=== PATIENT | female | born 1980 | race Caucasian/White ===

== ENCOUNTER → 2016-11-12 | Outpatient (CLI) | payer OTHER ==
--- NOTE | 2016-11-12 15:40 | US ---
EXAMINATION TYPE: US transvaginal DATE OF EXAM: 11/12/2016 COMPARISON: NONE CLINICAL HISTORY: R10.2 PELVIC AND PERINEAL PAIN. TECHNIQUE: Transvaginal (TV) Date of LMP: 11/11/2016 EXAM MEASUREMENTS: Uterus: 8.5 x 4.1 x 5.0 cm Endometrial Stripe: 0.7 cm Right Ovary: 2.4 x 1.7 x 1.6 cm Left Ovary: 2.3 x 2.6 x 1.1 cm 1. Uterus: Anteverted wnl 2. Endometrium: wnl 3. Right Ovary: wnl 4. Left Ovary: wnl 5. Bilateral Adnexa: wnl 6. Posterior cul-de-sac: no free fluid Endometrium is slightly thickened for proliferative phase of menstrual cycle. IMPRESSION: Slight heterogeneous thickening of the endometrium otherwise unremarkable study.
--- NOTE | 2016-11-13 07:37 | MM ---
Reason for exam: clinical finding. Indicated problem(s): lump or thickening in the left breast. Physical Findings: Nurse did not find any significant physical abnormalities on exam. [facility] Diagnostic Mammo w CAD MELISSA Bilateral CC and MLO view(s) were taken. LM and CC with magnification view(s) were taken of the right breast. The breast tissue is extremely dense which could obscure a lesion on mammography. Finding: There are indeterminate grouped/clustered calcifications in the inner quadrant, posterior position of the right breast, they do not persist on additional views. These results were verbally communicated with the patient and result sheet given to the patient on 11/12/16. ASSESSMENT: Benign, BI-RAD 2 RECOMMENDATION: Routine screening mammogram of both breasts at age 42. Manage patient on a clinical basis.
--- NOTE | 2016-11-13 07:38 | USB ---
Reason for exam: clinical finding. Indicated problem(s): lump or thickening in the left breast. US Breast LT Left breast ultrasound includes all four quadrants, the retroareolar region and axilla. Finding demonstrates a 0.7 x 0.3 x 0.5cm oval, cystic lesion at 5 o'clock, fibrocystic change. These results were verbally communicated with the patient and result sheet given to the patient on 11/12/16. ASSESSMENT: Benign, BI-RAD 2 RECOMMENDATION: Routine screening mammogram of both breasts at age 42. Manage patient on a clinical basis.
== END | disposition home or self-care (01) ==
LOC: RADMAMWWP 14:07
PROVIDERS: ATTEND Family Medicine
DX: N64.4 Mastodynia (principal); R10.2 Pelvic and perineal pain
CPT/HCPCS: 76830; 76641; G0204